=== PATIENT | female | born 1995 | race African-American/Black ===

== ENCOUNTER 2017-08-07 10:03 | Emergency (ER) | payer MEDICAID ==
[~2017-08-07] VITALS: Ht 157.5 cm; Wt 66.7 kg
[2017-08-07 10:12] VITALS: BP 107/64
[2017-08-07 11:48] LABS: Urine Bilirubin Negative (Negative); Urine Blood Negative /uL (Negative); Urine Color Yellow (Yellow); Urine Glucose Normal (Normal); Urine Ketone Negative (Negative); Urine Mucus FEW (None Seen); Urine Nitrite Negative (Negative); Urine RBC 3 /hpf (0 - 4); Urine Squamous Epithelial Cell FEW /hpf (<5); Urine Urobilinogen Normal (Negative); Urine pH 6.5 (5.0-8.0)
[2017-08-07 12:20] LABS: Vaginal Trichomonas Not Present; Vaginal Yeast None Seen
[2017-08-07 12:21] LABS: Vaginal Bacteria Moderate; Vaginal Clue Cells Few; Vaginal Epithelial Cells Moderate; Vaginal RBC Few; Vaginal WBC Moderate
== END 2017-08-07 12:36 | disposition home or self-care (01) ==
LOC: ER 10:03
DX: N39.0 Urinary tract infection, site not specified (principal); B96.89 Other specified bacterial agents as the cause of diseases classified elsewhere; N76.0 Acute vaginitis; T78.40XA Allergy, unspecified, initial encounter
CPT/HCPCS: 81001; 87210

== ENCOUNTER 2022-12-12 13:24 | Emergency (ER) | payer OTHER ==
[~2022-12-12] VITALS: Ht 157.5 cm; Wt 70.3 kg
[2022-12-12] MEDS ORDERED: LIDOCAINE 1% HCL (LOCAL ANESTH.) INJ 20ML MDV IJ ONE (15:45)
[2022-12-12 15:54] VITALS: BP 134/58
== END 2022-12-12 16:13 | disposition home or self-care (01) ==
LOC: ER 13:24
DX: L05.02 Pilonidal sinus with abscess (principal)
CPT/HCPCS: 10080; 99282; J2001

== ENCOUNTER 2022-12-14 17:48 | Emergency (ER) | payer OTHER ==
[~2022-12-14] VITALS: Ht 157.5 cm; Wt 70.0 kg
[2022-12-14 18:34] VITALS: BP 116/89
== END 2022-12-14 19:06 | disposition home or self-care (01) ==
LOC: ER 17:48
DX: L05.01 Pilonidal cyst with abscess (principal)

== ENCOUNTER 2022-12-16 17:33 | Emergency (ER) | payer OTHER ==
[~2022-12-16] VITALS: Ht 157.5 cm; Wt 73.0 kg
[2022-12-16 18:40] VITALS: BP 117/74
== END 2022-12-16 19:03 | disposition home or self-care (01) ==
LOC: ER 17:33
DX: Z00.00 Encounter for general adult medical examination without abnormal findings (principal)

== ENCOUNTER 2024-03-01 08:52 | Emergency (ER) | payer OTHER ==
[~2024-03-01] VITALS: Ht 157.5 cm; Wt 74.2 kg
[2024-03-01] MEDS ORDERED: PRED20TA2 PO (11:23)
[2024-03-01] MEDS: methylPREDNISolone SOD SUCC 125 MG/2 ML VL IM ONE (11:35)
== END 2024-03-01 11:43 | disposition home or self-care (01) ==
LOC: ER 08:52
DX: S00.86XA Insect bite (nonvenomous) of other part of head, initial encounter (principal); L74.0 Miliaria rubra; Z79.899 Other long term (current) drug therapy; W57.XXXA Bitten or stung by nonvenomous insect and other nonvenomous arthropods, initial encounter; Y93.89 Activity, other specified; Y92.89 Other specified places as the place of occurrence of the external cause; Y99.8 Other external cause status
CPT/HCPCS: 96372; 99283; J2919